=== PATIENT | male | born 1985 | race Caucasian/White ===

== ENCOUNTER 2021-10-22 12:44 | Emergency (ER) | payer OTHER, SELFPAY ==
[2021-10-22 13:02] VITALS: BP 141/96; PULSE 74; RESP 16; TEMP 37.2; O2SAT 100
[2021-10-22 13:10] VITALS: BP 141/96; PULSE 74; RESP 16; TEMP 37.2; O2SAT 100
--- NOTE | 2021-10-22 13:27 | ED.GENADULT ---
HPI - General Adult General Chief complaint: Upper Respiratory Infection Stated complaint: covid symptoms Time Seen by Provider: 10/22/21 13:13 Source: patient and RN notes reviewed Mode of arrival: ambulatory Limitations: no limitations History of Present Illness HPI narrative: Patient presents today complaining of severe fatigue since he got Covid 4 weeks ago. It is worse in the mornings and persist throughout the day. Patient is also complaining of intermittent left upper chest tightness that is very sporadic but comes with some mild shortness of breath. States that when he is short of breath he can yawn and typically the shortness of breath resolves. Shortness of breath and chest tightness is not worse with exertion and does not spread to any other part of the chest or back. Reports asthma as a child, but was typically related to exercise and resolved as some dull. He has not been taking any [id number] medications for the symptoms. He denies any current cough or fever. MD complaint: Fatigue, sporadic chest tightness Related Data Home Medications Medication Instructions Recorded Confirmed No Home Medications 10/22/21 10/22/21 Allergies Allergy/AdvReac Type Severity Reaction Status Date / Time No Known Allergies Allergy Verified 10/22/21 13:09 Review of Systems Review of Systems: CONSTITUTIONAL: Denies body aches, fever, chills, or sweats.+ Fatigue EYES: Denies visual changes, redness, or discharge. ENT: Denies rhinorrhea, congestion, sore throat, or otalgia. CARDIOVASCULAR: Denies chest pain, palpitations, or edema.+ Left upper chest tightness RESPIRATORY: Denies cough or dyspnea. GASTROINTESTINAL: Denies abdominal pain, nausea, vomiting, or diarrhea. GENITOURINARY: Denies dysuria or hematuria. SKIN: Denies rash, itching, or wounds. MUSCULOSKELETAL: Denies back pain, joint pain, or myalgia. NEUROLOGIC: Denies headache, numbness, tingling, or weakness. PSYCH: Denies depression or anxiety. PMFSH Comments At time of signature, I have reviewed and agree with nursing past medical, surgical, social and family history unless otherwise noted. Please see nursing chart for further information. There is no relevant family history pertinent to the presenting complaint Exam Narrative: GENERAL: Well-appearing, well-nourished, and in no acute distress. HEAD: Normocephalic, atraumatic. EYES: EOMI. No redness or drainage. Conjunctivae normal. ENT: Mucous membranes pink and moist. NECK: Normal AROM. CHEST: No respiratory distress. Clear to auscultation. Chest is nontender. HEART: Regular rate and rhythm. No murmur appreciated. Normal peripheral pulses. EXTREMITIES: Normal range of motion. No edema. SKIN: Warm, dry, no rash. Capillary refill normal. Normal skin turgor. NEURO: No focal deficits. Alert and oriented x3. Gait steady. PSYCH: Normal affect. No signs of depression or anxiety. Course Course Level of Care: Express Care Visit Vital Signs Vital signs: Vital Signs Temperature 99.0 F 10/22/21 13:02 Pulse Rate 74 10/22/21 13:02 Respiratory Rate 16 10/22/21 13:02 Blood Pressure 141/96 H 10/22/21 13:02 Pulse Oximetry 100 10/22/21 13:02 Temperature 99.0 F 10/22/21 13:10 Pulse Rate 74 10/22/21 13:10 Respiratory Rate 16 10/22/21 13:10 Blood Pressure 141/96 H 10/22/21 13:10 Pulse Oximetry 100 10/22/21 13:10 Reviewed. Pt has been instructed to follow up with his PCP regarding his elevated blood pressure today. Medical Decision Making Differential Diagnosis Differential Diagnosis: Long Covid, pneumonia Vital Signs Vital Signs: Vital Signs Temperature 99.0 F 10/22/21 13:02 Pulse Rate 74 10/22/21 13:02 Respiratory Rate 16 10/22/21 13:02 Blood Pressure 141/96 H 10/22/21 13:02 Pulse Oximetry 100 10/22/21 13:02 Temperature 99.0 F 10/22/21 13:10 Pulse Rate 74 10/22/21 13:10 Respiratory Rate 16 10/22/21 13:10 Blood Pressure 141/96 H 08
== END 2021-10-22 13:36 | disposition home or self-care (01) ==
PROVIDERS: Emergency Provider Nurse Practitioner
DX: G93.3 Postviral and related fatigue syndromes (principal); Z86.16 Personal history of COVID-19; Z98.52 Vasectomy status
CPT/HCPCS: 99202; G0463